=== PATIENT | male | born 1980 | race Caucasian/White ===

== ENCOUNTER 2019-01-13 22:17 | Emergency (ER) | payer OTHER ==
[2019-01-13] MEDS ORDERED: ASPIRIN 81 MG PO STA (22:35)
[2019-01-13] MEDS ORDERED: SODIUM CHLORIDE 0.9% 1,000 ML IV STA (22:35)
[2019-01-13 22:56] LABS: Basophils % (A) 1 %; Eosinophils # (A) 0.2 k/uL (0-0.7); Eosinophils % (A) 3 %; HCT 45.7 % (39.0-53.0); HGB 15.6 gm/dL (13.0-17.5); Lymphocytes # (A) 2.3 k/uL (1.0-4.8); Lymphocytes % (A) 34 %; MCH 29.5 pg (25.0-35.0); MCHC 34.1 g/dL (31.0-37.0); MCV 86.5 fL (80.0-100.0); Mean Platelet Volume 6.3; Monocytes # (A) 0.4 k/uL (0-1.0); Monocytes % (A) 6 %; Neutrophils # (A) 3.5 k/uL (1.3-7.7); Neutrophils % (A) 54 %; Platelet Count 208 k/uL (150-450); RBC 5.29 m/uL (4.30-5.90); RDW 12.8 % (11.5-15.5); WBC 6.6 k/uL (3.8-10.6)
[2019-01-13 23:07] LABS: ALT 28 U/L (21-72); AST 19 U/L (17-59); Alkaline Phosphatase 71 U/L (38-126); Anion Gap 11 mmol/L; Blood Urea Nitrogen 22 mg/dL (9-20); Carbon Dioxide 26 mmol/L (22-30); Chloride 104 mmol/L (98-107); Glucose 120 mg/dL (74-99); Magnesium 1.8 mg/dL (1.6-2.3); Potassium 3.4 mmol/L (3.5-5.1); Sodium 141 mmol/L (137-145); Total Bilirubin 0.7 mg/dL (0.2-1.3); Total Protein 7.8 g/dL (6.3-8.2)
[2019-01-13 23:09] LABS: Appearance,Urine Clear (Clear); Bilirubin,Urine Negative (Negative); Blood,Urine Small (Negative); Color,Urine Light Yellow; Glucose,Urine (UA) Negative (Negative); Ketones,Urine Negative (Negative); Leukocyte Esterase,Urine Negative (Negative); Nitrite,Urine Negative (Negative); PH, Urine 6.5 (5.0-8.0); Protein,Urine Negative (Negative); RBC,Urine 4 /hpf (0-5); Specific Gravity,Urine 1.005 (1.001-1.035); Urobilinogen,Urine <2.0 mg/dL (<2.0); WBC,Urine <1 /hpf (0-5)
[2019-01-13 23:11] LABS: D-Dimer <0.17 mg/L FEU (<0.60); INR 0.9 (<1.2); Partial Thromboplastin Time 24.1 sec (22.0-30.0); Prothrombin Time 10.1 sec (9.0-12.0)
--- NOTE | 2019-01-13 23:24 | XR ---
EXAM: XR Chest, 2 Views CLINICAL HISTORY: Chest Pain TECHNIQUE: Frontal and lateral views of the chest. COMPARISON: No relevant prior studies available. FINDINGS: Lungs: Unremarkable. No consolidation. Pleural space: Unremarkable. No pneumothorax. Heart: Unremarkable. No cardiomegaly. Mediastinum: Unremarkable. Bones/joints: Unremarkable. IMPRESSION: Normal chest x-rays.
--- NOTE | 2019-01-13 23:38 | CT ---
EXAM: CT Head Without Intravenous Contrast CLINICAL HISTORY: Pain TECHNIQUE: Axial computed tomography images of the head/brain without intravenous contrast. CTDI is 50.7 mGy and DLP is 1142.4 mGy-cm. This CT exam was performed using one or more of the following dose reduction techniques: automated exposure control, adjustment of the mA and/or kV according to patient size, and/or use of iterative reconstruction technique. COMPARISON: No relevant prior studies available. FINDINGS: Brain: Unremarkable. No hemorrhage. No significant white matter disease. No edema. There is artifact generated by beam hardening through the meggan. Ventricles: Unremarkable. No ventriculomegaly. Bones/joints: Unremarkable. No acute fracture. Soft tissues: Unremarkable. Sinuses: Unremarkable as visualized. No acute sinusitis. Mastoid air cells: Unremarkable as visualized. No mastoid effusion. IMPRESSION: Unremarkable CT brain
--- NOTE | 2019-01-14 00:08 | ED ---
General Adult HPI - General Source: patient, RN notes reviewed, old records reviewed Mode of arrival: ambulatory Limitations: no limitations <Cisco Burton - Last Filed: 01/14/19 00:01> <Connie Jackson - Last Filed: 01/14/19 05:39> - General Chief complaint: Recheck/Abnormal Lab/Rx Stated complaint: Lightheaded/Lt Arm Pressure Time Seen by Provider: 01/13/19 22:27 - History of Present Illness Initial comments: 38-year-old male patient no pertinent past medical history presents to ED with complaint of approximately 3 weeks of mild dizziness, lightheadedness. Patient denies any recent falls, head trauma. Patient denies any tinnitus. Patient denies any changes in vision. Patient denies any headaches. Patient has secondary complaint of left bicep arm pressure. This is also been ongoing for approximately 3 weeks. Patient denies any chest pain or shortness of breath. Patient denies any abdominal pain, nausea vomiting diarrhea, diaphoresis. Patient has a dyspnea on exertion. Patient has no personal or family history of cardiovascular disease. Patient denies other complaints. Systemic: Pt denies fatigue, myalgia, fever/chills, rash. Pt denies weakness, night sweats, weight loss. Neuro: Pt denies headache, visual disturbances, syncope or pre-syncope. HEENT: Pt denies ocular discharge or irritation, otalgia, rhinorrhea, pharyngitis or notable lymphadenopathy. Cardiopulmonary: Pt denies chest pain, SOB, heart palpitations, dyspnea on exertion. Abdominal/GI: Pt denies abdominal pain, n/v/d. : Pt denies dysuria, burning w/ urination, frequency/urgency. Denies new onset urinary or bowel incontinence. MSK: Pt denies myalgia, loss of strength or function in extremities. Neuro: Pt denies new onset weakness, paresthesias. (Cisco Burton) - Related Data Home Medications Medication Instructions Recorded Confirmed Albuterol Sulfate [Proair Hfa] 1 puff INHALATION RT-Q6H PRN 01/13/19 01/13/19 Multivitamins, Thera [Multivitamin 1 tab PO DAILY 01/13/19 01/13/19 (formulary)] Allergies Allergy/AdvReac Type Severity Reaction Status Date / Time apple AdvReac Unknown Verified 01/13/19 22:31 BIRCH TREES Allergy Unknown Uncoded 01/13/19 22:31 [place] OLIVES Allergy Unknown Uncoded 01/13/19 22:31 Review of Systems ROS Other: All systems not noted in ROS Statement are negative. <Cisco Burton - Last Filed: 01/14/19 00:01> ROS Other: All systems not noted in ROS Statement are negative. <Connie Jackson - Last Filed: 01/14/19 05:39> ROS Statement: Those systems with pertinent positive or pertinent negative responses have been documented in the HPI. Past Medical History Past Medical History: No Reported History History of Any Multi-Drug Resistant Organisms: None Reported Additional Past Surgical History / Comment(s): right ACL reconstruction. Past Psychological History: No Psychological Hx Reported Smoking Status: Current every day smoker Past Alcohol Use History: Occasional Past Drug Use History: None Reported <Cisco Burton - Last Filed: 01/14/19 00:01> General Exam Limitations: no limitations <Cisco Burton - Last Filed: 01/14/19 00:01> <Connie Jackson - Last Filed: 01/14/19 05:39> - General Exam Comments Initial Comments: Constitutional: NAD, AOX3, Pt has pleasant affect. HEENT: NC/AT, trachea midline, neck supple, no lymphadenopathy. Posterior pharynx non erythematous, without exudates. External ears appear normal, without discharge. Mucous membranes moist. Eyes PERRLA, EOM intact. There is no scleral icterus. No pallor noted. Cardiopulmonary: RRR, no murmurs, rubs or gallops, no JVD noted. Lungs CTAB in anterior and posterior boyd. No peripheral edema. Abdominal exam: Abdomen soft and non-distended. Abdomen non-tender to palpation in all 4 quadrants. Bowel sounds active in LLQ. No hepatosplenomegaly. No ecchymosis Neuro: CN II-XII intact. No nuchal rigidity. MSK: No posterior calf tenderness bilaterally, homans sign negative bilaterally. Posterior tibialis and radial pulse +2 bilaterally. Sensation intact in upper and lower extremities. Full active ROM in upper and lower extremities, 5/5 stregnth. (Cisco Burton) Vital Signs 01/13/19 01/13/19 01/13/19 22:18 23:00 23:10 Temperature 98 F Pulse Rate 85 96 89 Respiratory 16 26 H 10 L Rate Blood Pressure 160/83 136/81 O2 Sat by Pulse 99 Oximetry 01/13/19 01/13/19 01/14/19 23:40 23:50 00:10 Temperature Pulse Rate 79 89 90 Respiratory 16 16 14 Rate Blood Pressure 128/76 128/76 129/80 O2 Sat by Pulse Oximetry 01/14/19 00:46 Temperature 98.0 F Pulse Rate Respiratory Rate Blood Pressure O2 Sat by Pulse Oximetry Medical Decision Making - Lab Data Result diagrams: 01/13/19 22:44 01/13/19 22:44 - EKG Data -: EKG Interpreted by Me (and Dr. Jackson) <Cisco Burton - Last Filed: 01/14/19 00:01> - Lab Data Result diagrams: 01/13/19 22:44 01/13/19 22:44 <Connie Jacksno - Last Filed: 01/14/19 05:39> - Medical Decision Making 38-year-old male patient no pertinent past medical history presents to ED with complaint of approximately 3 weeks of mild dizziness, lightheadedness. Patient denies any recent falls, head trauma. Patient denies any tinnitus. Patient denies any changes in vision. Patient denies any headaches. Patient has secondary complaint of left bicep arm pressure. This is also been ongoing for approximately 3 weeks. Patient denies any chest pain or shortness of breath. Patient denies any abdominal pain, nausea vomiting diarrhea, diaphoresis. Patient has a dyspnea on exertion. Patient has no personal or family history of cardiovascular disease. Patient denies other complaints. Patient vital signs stable, afebrile. Physical exam did not display acute pathology. Neuro exam within normal limits. Laboratory investigations are non-impressive CBC, CMP. Coagulation studies within normal limits. D-dimer negative. UA displayed small blood. Patient has had microhematuria before, follows with primary care provider. Troponin negative. CT of brain is acute pathology. Chest x-ray did not display acute pathology. EKG displayed nonspecific T-wave abnormality. On repeat evaluation patient says the dizziness has improved after IV fluid administration. Patient continues to deny any chest pain or shortness of breath. Patient to discharged with cardiology follow-up. Patient follow up with cardiology 1-2 days. Patient to return to ED if new signs or symptoms develop or if condition worsens in anyway. Case discussed with Dr. Jackson. (Cisco Burton) I was available for consultation in the emergency department. The history and physical exam were done by the midlevel provider. I was consulted for this patient's care. I reviewed the case with the midlevel provider and based on their presentation of the patient, I agree with the assessment, medical decision making and plan of care as documented. I did review the patient's EKGs. Initial EKG was tachycardic with some very minimal ST depressions however this resolved after IV fluid rehydration tachycardia resolved. (Connie Jackson) - Lab Data Lab Results 01/13/19 01/13/19 01/13/19 Range/Units 22:44 22:44 22:44 WBC 6.6 (3.8-10.6) k/uL RBC 5.29 (4.30-5.90) m/uL Hgb 15.6 (13.0-17.5) gm/dL Hct 45.7 (39.0-53.0) % MCV 86.5 (80.0-100.0) fL MCH 29.5 (25.0-35.0) pg MCHC 34.1 (31.0-37.0) g/dL RDW 12.8 (11.5-15.5) % Plt Count 208 (150-450) k/uL Neutrophils % 54 % Lymphocytes % 34 % Monocytes % 6 % Eosinophils % 3 % Basophils % 1 % Neutrophils # 3.5 (1.3-7.7) k/uL Lymphocytes # 2.3 (1.0-4.8) k/uL Monocytes # 0.4 (0-1.0) k/uL Eosinophils # 0.2 (0-0.7) k/uL Basophils # 0.0 (0-0.2) k/uL PT 10.1 (9.0-12.0) sec INR 0.9 (<1.2) APTT 24.1 (22.0-30.0) sec D-Dimer <0.17 (<0.60) mg/L FEU Sodium 141 (137-145) mmol/L Potassium 3.4 L (3.5-5.1) mmol/L Chloride 104 (98-107) mmol/L Carbon Dioxide 26 (22-30) mmol/L Anion Gap 11 mmol/L BUN 22 H (9-20) mg/dL Creatinine 1.09 (0.66-1.25) mg/dL Est GFR (CKD-EPI)AfAm >90 (>60 ml/min/1.73 sqM) Est GFR (CKD-EPI)NonAf 87 (>60 ml/min/1.73 sqM) Glucose 120 H (74-99) mg/dL Calcium 10.0 (8.4-10.2) mg/dL Magnesium 1.8 (1.6-2.3) mg/dL Total Bilirubin 0.7 (0.2-1.3) mg/dL AST 19 (17-59) U/L ALT 28 (21-72) U/L Alkaline Phosphatase 71 (38-126) U/L Troponin I (0.000-0.034) ng/mL Total Protein 7.8 (6.3-8.2) g/dL Albumin 5.0 (3.5-5.0) g/dL Urine Color Urine Appearance (Clear) Urine pH (5.0-8.0) Ur Specific Severance (1.001-1.035) Urine Protein (Negative) Urine Glucose (UA) (Negative) Urine Ketones (Negative) Urine Blood (Negative) Urine Nitrite (Negative) Urine Bilirubin (Negative) Urine Urobilinogen (<2.0) mg/dL Ur Leukocyte Esterase (Negative) Urine RBC (0-5) /hpf Urine WBC (0-5) /hpf 01/13/19 01/13/19 Range/Units 22:44 22:56 WBC (3.8-10.6) k/uL RBC (4.30-5.90) m/uL Hgb (13.0-17.5) gm/dL Hct (39.0-53.0) % MCV (80.0-100.0) fL MCH (25.0-35.0) pg MCHC (31.0-37.0) g/dL RDW (11.5-15.5) % Plt Count (150-450) k/uL Neutrophils % % Lymphocytes % % Monocytes % % Eosinophils % % Basophils % % Neutrophils # (1.3-7.7) k/uL Lymphocytes # (1.0-4.8) k/uL Monocytes # (0-1.0) k/uL Eosinophils # (0-0.7) k/uL Basophils # (0-0.2) k/uL PT (9.0-12.0) sec INR (<1.2) APTT (22.0-30.0) sec D-Dimer (<0.60) mg/L FEU Sodium (137-145) mmol/L Potassium (3.5-5.1) mmol/L Chloride (98-107) mmol/L Carbon Dioxide (22-30) mmol/L Anion Gap mmol/L BUN (9-20) mg/dL Creatinine (0.66-1.25) mg/dL Est GFR (CKD-EPI)AfAm (>60 ml/min/1.73 sqM) Est GFR (CKD-EPI)NonAf (>60 ml/min/1.73 sqM) Glucose (74-99) mg/dL Calcium (8.4-10.2) mg/dL Magnesium (1.6-2.3) mg/dL Total Bilirubin (0.2-1.3) mg/dL AST (17-59) U/L ALT (21-72) U/L Alkaline Phosphatase (38-126) U/L Troponin I <0.012 (0.000-0.034) ng/mL Total Protein (6.3-8.2) g/dL Albumin (3.5-5.0) g/dL Urine Color Light Yellow Urine Appearance Clear (Clear) Urine pH 6.5 (5.0-8.0) Ur Specific Severance 1.005 (1.001-1.035) Urine Protein Negative (Negative) Urine Glucose (UA) Negative (Negative) Urine Ketones Negative (Negative) Urine Blood Small H (Negative) Urine Nitrite Negative (Negative) Urine Bilirubin Negative (Negative) Urine Urobilinogen <2.0 (<2.0) mg/dL Ur Leukocyte Esterase Negative (Negative) Urine RBC 4 (0-5) /hpf Urine WBC <1 (0-5) /hpf - EKG Data EKG Comments: 1) Ventricular rate 112, patient will 118, QRS 94, QT since QTC 346 S4 72. Sinus tachycardia. ST and T-wave abnormality. 2) Ventricular rate 79, TX interval 138 QRS 90, QT/QTC 370/424. Normal sinus rhythm. Nonspecific ST abnormality. (Cisco Burton) Disposition Is patient prescribed a controlled substance at d/c from ED?: No Time of Disposition: 00:08 <Cisco Burton - Last Filed: 01/14/19 00:01> <Connie Jackson - Last Filed: 01/14/19 05:39> Clinical Impression: Dizziness Disposition: HOME SELF-CARE Condition: Stable Instructions (If sedation given, give patient instructions): Lightheadedness ( ED), Dizziness (ED) Additional Instructions: Patient to adhere to previously discussed treatment plan and will take medication(s) as directed. Patient to follow up with PCP in 1-2 days. Patient to return to ED if symptoms do not improve. Please call cardiology consult tomorrow. Please return to ED if new symptoms develop or if condition worsens in any way. Referrals: None,Stated [Primary Care Provider] - 1-2 days Angeles Ribeiro MD [STAFF PHYSICIAN] - 1-2 days
[2019-01-14 00:38] VITALS: BP 129/80; PULSE 90; RESP 14
[2019-01-14 00:49] VITALS: TEMP 98
== END 2019-01-14 00:44 | disposition home or self-care (01) ==
LOC: EC 22:17
DX: R42 Dizziness and giddiness (principal); R06.09 Other forms of dyspnea; R31.9 Hematuria, unspecified; F17.200 Nicotine dependence, unspecified, uncomplicated; Z91.018 Allergy to other foods; Z91.048 Other nonmedicinal substance allergy status
CPT/HCPCS: 36415; 70450; 71046; 80053; 81001; 83735; 84484; 85025; 85379; 85610; 85730; 93005; 96360; 99285

== ENCOUNTER 2021-10-30 15:48 | Emergency (ER) | payer OTHER ==
[2021-10-30 15:58] VITALS: RESP 18
--- NOTE | 2021-10-30 16:15 | XR ---
EXAMINATION TYPE: XR tibia fibula RT DATE OF EXAM: 10/30/2021 COMPARISON: NONE HISTORY: Laceration TECHNIQUE: 4 views FINDINGS: There is a single screw in the proximal tibia and also in the distal femur. I see no fractu re nor dislocation. There is no evidence of radiopaque soft tissue foreign body. Ankle joint is intac t. Knee joint is intact. IMPRESSION: Previous knee surgery. No fracture.
[2021-10-30] MEDS ORDERED: AMOXIC-POT CLAV 875MG STARTER PACK 2 TAB BTL PO STA (17:35)
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
[2021-10-30 18:07] VITALS: BP 141/88; PULSE 81; TEMP 98
== END 2021-10-30 18:11 | disposition home or self-care (01) ==
LOC: EC 15:48
DX: S81.811A Laceration without foreign body, right lower leg, initial encounter (principal); F12.90 Cannabis use, unspecified, uncomplicated; W26.8XXA Contact with other sharp object(s), not elsewhere classified, initial encounter
CPT/HCPCS: 12002; 99283